=== PATIENT | female | born 1990 | race African-American/Black ===

== ENCOUNTER 2019-08-26 18:15 | Inpatient (IN) ==
[2019-08-26] MEDS ORDERED: HYDROmorphone 2 MG/1 ML VIAL IV STA (19:01)
[2019-08-26] MEDS ORDERED: SODIUM CHLORIDE 0.9% 1,000 ML IV STA (19:01)
[2019-08-26] MEDS ORDERED: ONDANSETRON 4 MG/2 ML VIAL IV STA (19:01)
[2019-08-26 19:42] LABS: Basophils # 0.1 10*3/uL (0.0-0.2); Basophils % 0.5 % (0.0-0.8); Eosinophils % 0.1 % (0.00-10.9); Hematocrit 20.4 VOL% (35.7-47.0); Hemoglobin 6.9 GM/DL (12.0-16.0); Immature Granulocytes % 2.7 %; Immature Granulocytes Absolute 0.49 #; Lymphocytes # 3.8 10*3/uL (1.4-4.0); Lymphocytes % 21.2 % (21.3-54.2); Mean Corpuscular HGB Conc 33.8 GM/DL (32-36); Mean Corpuscular Volume 87.6 FL (87-102); Mean Platelet Volume 9.8 FL (9.6-12.0); Monocytes % 6.2 % (1.7-12.7); NRBC # 1.21 10*3/uL; Neutrophils % 69.3 % (38.7-73.9); Platelet Count 421 T/CUMM (130-400); Red Blood Count 2.33 MC/CUMM (3.8-5.5); Red Cell Distribution Width 23.7 % (9.3-17.3)
[2019-08-26 19:44] LABS: Apearance,Urine CLEAR (Clear); Bilirubin,Urine Negative (Negative); Blood, Urine Small mg/dL (Negative); Glucose,Urine (UA) Negative (Negative); Ketones,Urine Negative (Negative); Nitrite,Urine Negative (Negative); Protein,Urine Negative; RBC,Urine <1 /HPF (0-4); Squamous Epithelial Cell,Urine Occasional /HPF (0-10); Urine Color Yellow (Yellow); Urine Specific Gravity 1.009 (1.001-1.035); Urine Urobilinogen < 2.0 EU/DL (0.2-1.0); WBC,Urine 1 /HPF (0-6)
[2019-08-26 19:50] LABS: Barbiturates Screen,Urine Negative (Negative); Benzodiazepines Screen,Urine Negative (Negative); Cannabinoid Screen,Urine Negative (Negative); Opiate Screen,Urine Positive (Negative); Phencyclidine Screen,Urine Negative (Negative)
[2019-08-26 19:53] LABS: INR 1.1; PT Patient Result 11.6 SECS (9.6-12.2)
[2019-08-26 19:58] LABS: Albumin 4.4 G/DL (3.4-5.0); Bilirubin,Total 2.9 MG/DL (0.2-1.0); Calcium 8.6 MG/DL (8.5-10.1); Osmolality,Calculated 279.1 MOS/KG (273-304); Total Protein 7.7 G/DL (6.4-8.3)
[2019-08-26 20:03] LABS: Anisocytosis 1+; Macrocytosis Slight; Microcytosis 1+; Polychromasia 1+; Sickle Cells 2+; Target Cells 1+
[2019-08-26 20:04] LABS: Platelet Estimate Normal; Poikilocytosis 2+
[2019-08-26] MEDS ORDERED: ZALEPLON 5 MG CAPSULE PO PRN (22:05)
[2019-08-26] MEDS ORDERED: ONDANSETRON 4 MG/2 ML VIAL IV PRN (22:05)
[2019-08-26] MEDS ORDERED: SODIUM CHLORIDE 0.9% 1,000 ML IV PRN (22:11)
[2019-08-26] MEDS: ENOXAPARIN 40 MG/0.4 ML SYRINGE SUBCUT SCH (23:31)
[2019-08-26] MEDS: SODIUM CHLORIDE 0.9% 1,000 ML IV SCH (23:33)
[2019-08-27] MEDS: HYDROmorphone 2 MG/1 ML VIAL IV PRN ×5 (01:47→20:37)
[2019-08-27 09:19] LABS: Basophils # 0.1 10*3/uL (0.0-0.2); Basophils % 0.3 % (0.0-0.8); Eosinophils % 0.1 % (0.00-10.9); Hematocrit 23.3 VOL% (35.7-47.0); Immature Granulocytes % 0.6 %; Immature Granulocytes Absolute 0.09 #; Lymphocytes # 3.9 10*3/uL (1.4-4.0); Lymphocytes % 26.7 % (21.3-54.2); Mean Corpuscular HGB Conc 34.3 GM/DL (32-36); Mean Corpuscular Volume 88.3 FL (87-102); Mean Platelet Volume 9.9 FL (9.6-12.0); NRBC # 1.07 10*3/uL; Neutrophils % 63.3 % (38.7-73.9); Platelet Count 404 T/CUMM (130-400); Red Blood Count 2.64 MC/CUMM (3.8-5.5); Red Cell Distribution Width 21.1 % (9.3-17.3); White Blood Count 14.8 T/CUMM (4-12)
[2019-08-27] MEDS: PANTOPRAZOLE 40 MG TABLET PO SCH (09:39)
[2019-08-27] MEDS: SODIUM CHLORIDE 0.9% 1,000 ML IV SCH ×2 (09:39→20:38)
[2019-08-27 09:50] LABS: Albumin 3.8 G/DL (3.4-5.0); Bilirubin,Total 4.1 MG/DL (0.2-1.0); Calcium 8.4 MG/DL (8.5-10.1); Osmolality,Calculated 274.5 MOS/KG (273-304); Total Protein 7.1 G/DL (6.4-8.3)
[2019-08-27] MEDS: ENOXAPARIN 40 MG/0.4 ML SYRINGE SUBCUT SCH (22:15)
[2019-08-28] MEDS: HYDROmorphone 2 MG/1 ML VIAL IV PRN ×2 (02:00→07:13)
[2019-08-28 05:28] LABS: Basophils % 0.3 % (0.0-0.8); Eosinophils # 0.1 10*3/uL (0.0-0.87); Eosinophils % 0.5 % (0.00-10.9); Hematocrit 23.1 VOL% (35.7-47.0); Hemoglobin 7.7 GM/DL (12.0-16.0); Immature Granulocytes % 0.6 %; Immature Granulocytes Absolute 0.07 #; Lymphocytes # 2.8 10*3/uL (1.4-4.0); Lymphocytes % 23.7 % (21.3-54.2); Mean Corpuscular HGB Conc 33.3 GM/DL (32-36); Mean Corpuscular Volume 88.8 FL (87-102); Mean Platelet Volume 10.2 FL (9.6-12.0); Monocytes % 8.8 % (1.7-12.7); NRBC # 0.67 10*3/uL; Neutrophils % 66.1 % (38.7-73.9); Platelet Count 356 T/CUMM (130-400); Red Cell Distribution Width 20.2 % (9.3-17.3); White Blood Count 11.9 T/CUMM (4-12)
[2019-08-28 06:00] LABS: Albumin 3.6 G/DL (3.4-5.0); Bilirubin,Total 3.6 MG/DL (0.2-1.0); Calcium 8.4 MG/DL (8.5-10.1); Osmolality,Calculated 274.5 MOS/KG (273-304)
[2019-08-28] MEDS: SODIUM CHLORIDE 0.9% 1,000 ML IV SCH (09:17)
[2019-08-28] MEDS: PANTOPRAZOLE 40 MG TABLET PO SCH (09:18)
[2019-08-28 13:06] VITALS: BP 130/90
== END 2019-08-28 15:12 | disposition home or self-care (01) | DRG 662 ==
LOC: N.ED 18:15 → SUATTDRO 22:05 → N.EDINP 22:05 → N.4E 22:27
PROVIDERS: ADMIT Internal Medicine; ATTEND Family Medicine

== ENCOUNTER 2020-03-13 17:54 | Observation (INO) ==
[2020-03-13] MEDS ORDERED: KETOROLAC 30 MG/1 ML VIAL IV STA (19:16)
[2020-03-13] MEDS ORDERED: ONDANSETRON 4 MG/2 ML VIAL IV ONE (19:16)
[2020-03-13] MEDS ORDERED: MORPHINE 4 MG/1 ML VIAL IV STA (19:16)
[2020-03-13 19:57] LABS: Basophils % 0.3 % (0.0-0.8); Eosinophils % 0.2 % (0.00-10.9); Hematocrit 20.5 VOL% (35.7-47.0); Immature Granulocytes % 0.8 %; Immature Granulocytes Absolute 0.11 #; Lymphocytes # 2.3 10*3/uL (1.4-4.0); Lymphocytes % 15.8 % (21.3-54.2); Mean Corpuscular HGB Conc 34.1 GM/DL (32-36); Mean Corpuscular Volume 89.1 FL (87-102); Mean Platelet Volume 9.8 FL (9.6-12.0); Monocytes % 7.8 % (1.7-12.7); NRBC # 3.03 10*3/uL; Neutrophils % 75.1 % (38.7-73.9); Platelet Count 421 T/CUMM (130-400); Red Cell Distribution Width 22.3 % (9.3-17.3); White Blood Count 14.4 T/CUMM (4-12)
[2020-03-13 19:59] LABS: Apearance,Urine CLEAR (Clear); Bacteria,Urine Occasional /HPF (Few); Bilirubin,Urine Negative (Negative); Blood, Urine Large mg/dL (Negative); Glucose,Urine (UA) Negative (Negative); Ketones,Urine Negative (Negative); Mucus,Urine Occasional /LPF (Occasional); Nitrite,Urine Negative (Negative); Protein,Urine 30 MG/DL; RBC,Urine 2 /HPF (0-4); Squamous Epithelial Cell,Urine Occasional /HPF (0-10); Urine Color Yellow (Yellow); Urine Specific Gravity 1.012 (1.001-1.035); WBC,Urine 2 /HPF (0-6)
[2020-03-13 20:20] LABS: Albumin 4.5 G/DL (3.4-5.0); Bilirubin,Total 3.7 MG/DL (0.2-1.0); Osmolality,Calculated 273.7 MOS/KG (273-304); Total Protein 8.1 G/DL (6.4-8.3)
[2020-03-13 21:30] LABS: Lymphocytes 20 % (20-55); Nucleated Red Blood Cells 42 (0-5); Segmented Neutrophils 74 % (50-85); Total Cells Counted 100
[2020-03-13 21:31] LABS: Polychromasia 2+; Sickle Cells 2+
[2020-03-13 21:32] LABS: Target Cells 1+
[2020-03-13 21:33] LABS: Hypochromasia Slight; Microcytosis Slight; Platelet Estimate Increased
[2020-03-13] MEDS ORDERED: DEXTROSE 50% 25 GM/50 ML VIAL IV PRN (21:53)
[2020-03-13] MEDS ORDERED: ZALEPLON 5 MG CAPSULE PO PRN (21:53)
[2020-03-13] MEDS ORDERED: diphenhydrAMINE CAP 25 MG CAPSULE PO PRN (21:53)
[2020-03-13] MEDS ORDERED: PROMETHAZINE 25 MG/1 ML VIAL IM PRN (21:53)
[2020-03-13] MEDS ORDERED: hydrALAZINE 20 MG/1 ML VIAL IV PRN (21:53)
[2020-03-13] MEDS ORDERED: guaiFENesin/DM ER 600-30 MG TABLET PO PRN (21:53)
[2020-03-13] MEDS ORDERED: NICOTINE 21 MG/24 HR PATCH TRANSDERM PRN (21:53)
[2020-03-13] MEDS ORDERED: GLUCAGON 1 MG VIAL IM PRN (21:53)
[2020-03-13] MEDS ORDERED: ONDANSETRON 4 MG/2 ML VIAL IV PRN (21:53)
[2020-03-13] MEDS ORDERED: DOCUSATE SODIUM 100 MG CAPSULE PO PRN (21:53)
[2020-03-13] MEDS: MORPHINE 4 MG/1 ML VIAL IV PRN (23:01)
[2020-03-13] MEDS ORDERED: SODIUM CHLORIDE 0.9% 1,000 ML IV PRN (23:57)
[2020-03-14] MEDS: SODIUM CHLORIDE 0.9% 1,000 ML IV SCH ×3 (01:41→17:31)
[2020-03-14 02:55] LABS: Apearance,Urine CLEAR (Clear); Bilirubin,Urine Negative (Negative); Blood, Urine Large mg/dL (Negative); Glucose,Urine (UA) Negative (Negative); Ketones,Urine Negative (Negative); Mucus,Urine Occasional /LPF (Occasional); Nitrite,Urine Negative (Negative); Protein,Urine 30 MG/DL; RBC,Urine 3 /HPF (0-4); Squamous Epithelial Cell,Urine Occasional /HPF (0-10); Urine Color Yellow (Yellow); Urine Specific Gravity 1.012 (1.001-1.035); Urine Urobilinogen < 2.0 EU/DL (0.2-1.0); WBC,Urine 2 /HPF (0-6)
[2020-03-14] MEDS: MORPHINE 4 MG/1 ML VIAL IV PRN ×3 (03:40→17:44)
[2020-03-14] MEDS: PANTOPRAZOLE 40 MG TABLET PO SCH (08:37)
[2020-03-14] MEDS: HYDROXYUREA 500 MG CAPSULE PO SCH ×2 (12:53→20:47)
[2020-03-14] MEDS: DOXYCYCLINE HYCLATE INJ 100 MG in SODIUM CHLORIDE 0.9% 100 ML IV SCH (13:57)
[2020-03-14] MEDS ORDERED: FOLIC ACID 1 MG TABLET PO SCH (21:00)
[2020-03-15] MEDS: DOXYCYCLINE HYCLATE INJ 100 MG in SODIUM CHLORIDE 0.9% 100 ML IV SCH ×2 (00:09→13:04)
[2020-03-15 04:54] LABS: Basophils % 0.4 % (0.0-0.8); Eosinophils # 0.2 10*3/uL (0.0-0.87); Eosinophils % 1.3 % (0.00-10.9); Hematocrit 21.4 VOL% (35.7-47.0); Hemoglobin 7.2 GM/DL (12.0-16.0); Immature Granulocytes % 0.4 %; Immature Granulocytes Absolute 0.05 #; Lymphocytes # 3.2 10*3/uL (1.4-4.0); Lymphocytes % 28.8 % (21.3-54.2); Mean Corpuscular HGB Conc 33.6 GM/DL (32-36); Mean Corpuscular Volume 89.2 FL (87-102); Mean Platelet Volume 9.7 FL (9.6-12.0); Monocytes % 9.3 % (1.7-12.7); NRBC # 1.53 10*3/uL; Neutrophils % 59.8 % (38.7-73.9); Platelet Count 332 T/CUMM (130-400); Red Cell Distribution Width 19.8 % (9.3-17.3); White Blood Count 11.2 T/CUMM (4-12)
[2020-03-15 05:10] LABS: Calcium 8.5 MG/DL (8.5-10.1); Osmolality,Calculated 276.4 MOS/KG (273-304)
[2020-03-15 05:25] LABS: Eosinophils 3 % (0-10); Hypochromasia 2+; Lymphocytes 41 % (20-55); Nucleated Red Blood Cells 11 (0-5); Platelet Estimate Adequate; Segmented Neutrophils 52 % (50-85); Sickle Cells Few; Total Cells Counted 100
[2020-03-15 05:26] LABS: Macrocytosis Slight; Polychromasia Slight; Target Cells Few
[2020-03-15 05:27] LABS: Howell-Jolly Bodies Slight
[2020-03-15] MEDS: SODIUM CHLORIDE 0.9% 1,000 ML IV SCH (06:01)
[2020-03-15] MEDS: MORPHINE 4 MG/1 ML VIAL IV PRN ×2 (07:16→13:00)
[2020-03-15] MEDS: HYDROXYUREA 500 MG CAPSULE PO SCH (10:23)
[2020-03-15] MEDS: PANTOPRAZOLE 40 MG TABLET PO SCH (10:23)
[2020-03-15] MEDS ORDERED: SODIUM CHLORIDE 0.9% 1,000 ML IV SCH (13:00)
[2020-03-15] MEDS ORDERED: PANTOPRAZOLE 40 MG VIAL IV ONE (14:05)
[2020-03-15] MEDS ORDERED: ALUM/MAG/SIMETH/LIDO VISC 1:1 30 ML BOTTLE PO ONE (14:05)
[2020-03-15 15:34] VITALS: BP 149/71
== END 2020-03-15 18:14 | disposition home or self-care (01) ==
LOC: N.ED 17:54 → N.EDINP 17:54 → SUATTDRO 21:53 → N.EDINP 23:38 → N.TELES 23:44
PROVIDERS: ADMIT Internal Medicine; ATTEND Internal Medicine

== ENCOUNTER 2021-11-25 19:05 | Observation (INO) ==
[2021-11-25 19:46] LABS: Basophils # 0.1 10*3/uL (0.0-0.2); Basophils % 0.3 % (0.0-0.8); Eosinophils % 0.1 % (0.00-10.9); Hematocrit 19.5 VOL% (35.7-47.0); Hemoglobin 6.7 GM/DL (12.0-16.0); Immature Granulocytes % 4.9 %; Immature Granulocytes Absolute 0.88 #; Lymphocytes # 4.1 10*3/uL (1.4-4.0); Lymphocytes % 22.4 % (21.3-54.2); Mean Corpuscular HGB Conc 34.4 GM/DL (32-36); Mean Corpuscular Volume 87.1 FL (87-102); Mean Platelet Volume 9.5 FL (9.6-12.0); Monocytes % 3.8 % (1.7-12.7); NRBC # 0.23 10*3/uL; Neutrophils % 68.5 % (38.7-73.9); Platelet Count 313 T/CUMM (130-400); Red Blood Count 2.24 MC/CUMM (3.8-5.5); Red Cell Distribution Width 21.6 % (9.3-17.3); White Blood Count 18.1 T/CUMM (4-12)
[2021-11-25 19:57] LABS: Albumin 4.6 G/DL (3.4-5.0); Bilirubin,Total 2.7 MG/DL (0.20-1.00); Calcium 9.1 MG/DL (8.5-10.1); Osmolality,Calculated 280.4 MOS/KG (273-304); Potassium 3.6 MMOL/L (3.5-5.1); Total Protein 7.7 G/DL (6.4-8.2)
[2021-11-25] MEDS ORDERED: ONDANSETRON 4 MG/2 ML VIAL IV STA (20:04)
[2021-11-25] MEDS ORDERED: HYDROmorphone 1 MG/1 ML SYRINGE IV STA (20:04)
[2021-11-25] MEDS ORDERED: SODIUM CHLORIDE 0.9% 1,000 ML IV STA (20:04)
[2021-11-25 20:13] LABS: INR 1.1; Partial Thromboplastin Time 24.2 SECS (23.8-32.1)
[2021-11-25 20:28] LABS: Band Neutrophils 1 % (0-10); Lymphocytes 29 % (20-55); Metamyelocytes 1 %; Nucleated Red Blood Cells 5 (0-5); Segmented Neutrophils 64 % (50-85); Total Cells Counted 100
[2021-11-25 20:30] LABS: Anisocytosis 1+; Poikilocytosis 1+; Target Cells Few
[2021-11-25 20:31] LABS: Elliptocytes Few; Polychromasia Few; Schistocytes Slight; Sickle Cells Slight; Stomatocytes Few
[2021-11-25 20:32] LABS: Hypochromia 1+
[2021-11-25 20:34] LABS: Platelet Estimate Increased
[2021-11-25] MEDS ORDERED: SODIUM CHLORIDE 0.9% 1,000 ML IV PRN (21:17)
[2021-11-25] MEDS ORDERED: MORPHINE 4 MG/1 ML VIAL IV PRN (22:28)
[2021-11-25 23:05] LABS: Bilirubin,Urine Negative (Negative); Blood, Urine Small mg/dL (Negative); Glucose,Urine (UA) Negative (Negative); Ketones,Urine Negative (Negative); Nitrite,Urine Negative (Negative); Protein,Urine 30 mg/dL (Negative); Urine Appearance Clear (Clear); Urine Color Yellow (Yellow); Urine Urobilinogen 0.2 eU/dL (<2.0)
[2021-11-25 23:08] LABS: RBC,Urine 2 /HPF (0-4); Squamous Epithelial Cell,Urine Occasional /HPF (0-10)
[2021-11-25] MEDS: HYDROmorphone 1 MG/1 ML SYRINGE IV PRN (23:40)
[2021-11-26] MEDS: DOXYCYCLINE HYCLATE 100 MG CAPSULE PO SCH ×3 (00:15→20:52)
[2021-11-26] MEDS: SODIUM CHLORIDE 0.9% 1,000 ML IV SCH ×4 (00:45→18:14)
[2021-11-26] MEDS: HYDROmorphone 1 MG/1 ML SYRINGE IV PRN ×6 (02:50→20:53)
[2021-11-26 05:03] LABS: Basophils # 0.1 10*3/uL (0.0-0.2); Basophils % 0.4 % (0.0-0.8); Eosinophils % 0.1 % (0.00-10.9); Hematocrit 23.4 VOL% (35.7-47.0); Hemoglobin 7.9 GM/DL (12.0-16.0); Immature Granulocytes % 5.7 %; Immature Granulocytes Absolute 1.17 #; Lymphocytes # 1.8 10*3/uL (1.4-4.0); Lymphocytes % 8.7 % (21.3-54.2); Mean Corpuscular HGB Conc 33.8 GM/DL (32-36); Mean Corpuscular Volume 86.3 FL (87-102); Mean Platelet Volume 9.6 FL (9.6-12.0); Monocytes % 7.8 % (1.7-12.7); NRBC # 1.56 10*3/uL; Neutrophils % 77.3 % (38.7-73.9); Platelet Count 286 T/CUMM (130-400); Red Blood Count 2.71 MC/CUMM (3.8-5.5); Red Cell Distribution Width 21.8 % (9.3-17.3); White Blood Count 20.4 T/CUMM (4-12)
[2021-11-26 05:28] LABS: Albumin 4.1 G/DL (3.4-5.0); Bilirubin,Direct 0.52 MG/DL (0.0-0.20); Bilirubin,Indirect 2.5 MG/DL (0.0-1.0); Calcium 8.4 MG/DL (8.5-10.1); Osmolality,Calculated 275.7 MOS/KG (273-304); Potassium 3.9 MMOL/L (3.5-5.1); Total Protein 7.5 G/DL (6.4-8.2)
[2021-11-26 07:00] LABS: Band Neutrophils 1 % (0-10); Eosinophils 1 % (0-10); Hypochromia 1+; Lymphocytes 17 % (20-55); Microcytosis 1+; Nucleated Red Blood Cells 17 (0-5); Segmented Neutrophils 76 % (50-85); Sickle Cells Few; Total Cells Counted 100
[2021-11-26 07:01] LABS: Howell-Jolly Bodies Slight; Pappenheimer Bodies Slight; Polychromasia Slight; Target Cells Few
[2021-11-26 07:02] LABS: Ovalocytes Few; Platelet Estimate Normal
[2021-11-26] MEDS: PANTOPRAZOLE 40 MG TABLET PO SCH (08:30)
[2021-11-26] MEDS: HYDROXYUREA 500 MG CAPSULE PO SCH (20:52)
[2021-11-27] MEDS: HYDROmorphone 1 MG/1 ML SYRINGE IV PRN (06:04)
[2021-11-27 06:14] LABS: Basophils % 0.2 % (0.0-0.8); Eosinophils % 0.1 % (0.00-10.9); Hematocrit 27.6 VOL% (35.7-47.0); Hemoglobin 8.8 GM/DL (12.0-16.0); Immature Granulocytes % 0.8 %; Immature Granulocytes Absolute 0.13 #; Lymphocytes # 1.7 10*3/uL (1.4-4.0); Lymphocytes % 9.8 % (21.3-54.2); Mean Corpuscular HGB Conc 31.9 GM/DL (32-36); Mean Corpuscular Volume 88.2 FL (87-102); Mean Platelet Volume 9.2 FL (9.6-12.0); Monocytes % 7.6 % (1.7-12.7); NRBC # 2.13 10*3/uL; Neutrophils % 81.5 % (38.7-73.9); Platelet Count 225 T/CUMM (130-400); Red Blood Count 3.13 MC/CUMM (3.8-5.5); Red Cell Distribution Width 22.5 % (9.3-17.3)
[2021-11-27 08:17] VITALS: BP 151/73
[2021-11-27] MEDS: PANTOPRAZOLE 40 MG TABLET PO SCH (08:29)
[2021-11-27] MEDS: DOXYCYCLINE HYCLATE 100 MG CAPSULE PO SCH (08:29)
[2021-11-27] MEDS: HYDROXYUREA 500 MG CAPSULE PO SCH (08:30)
[2021-11-27] MEDS ORDERED: FOLIC ACID 1 MG TABLET PO SCH (09:00)
[2021-11-27] MEDS ORDERED: CETIRIZINE 10 MG TABLET PO SCH (09:00)
[2021-11-27] MEDS: SODIUM CHLORIDE 0.9% 1,000 ML IV SCH (09:22)
== END 2021-11-27 11:27 | disposition home or self-care (01) ==
LOC: N.ED 19:05 → N.EDINP 19:05 → SUATTDRO 22:22 → N.EDINP 11-26 00:40 → N.TELES 11-26 00:45
PROVIDERS: ADMIT Hospitalist; ATTEND Emergency Medicine